=== PATIENT | female | born 1960 | race Two or more races ===

== ENCOUNTER 2019-09-26 11:58 | Inpatient (IN) | payer OTHER ==
[~2019-09-26] VITALS: Ht 154.9 cm; Wt 60.8 kg
[2019-09-30] MEDS ORDERED: AVALIDE PO (12:51)
[2019-09-30] MEDS ORDERED: LEVOTHYROXINE25 MCG PO (12:51)
[2019-09-30] MEDS ORDERED: [UNRECOGNIZED DRUG - OTHER] IJ (12:52)
[2019-09-30] MEDS ORDERED: CRESTOR10 MG PO (12:52)
[2019-10-02] MEDS ORDERED: IRBESARTAN-HCT1 EACH PO (08:33)
[2019-10-05] MEDS ORDERED: INTESTINEX680 M1 PO (12:48)
[2019-10-05] MEDS ORDERED: OMEPRAZOLE MAGN20 MG PO (12:48)
[2019-10-05] MEDS ORDERED: PERCOCET 5-3251 EACH PO (12:48)
== END 2019-10-05 15:27 | disposition home or self-care (01) | DRG 331 ==
LOC: EDUNIT# 09-30 09:45 → SURH 10-02 06:00 → O/R 10-02 06:00 → SURG 10-02 06:45 → SURH 10-02 11:11
PROVIDERS: ADMIT Surgery
PROC: 07TB4ZZ Resection of Mesenteric Lymphatic, Percutaneous Endoscopic Approach (ICD-10-PCS; 2019-10-02)
PROC: 0DTF4ZZ Resection of Right Large Intestine, Percutaneous Endoscopic Approach (ICD-10-PCS; principal; 2019-10-02 06:45)
DX: C18.0 Malignant neoplasm of cecum (principal); R59.0 Localized enlarged lymph nodes; I10 Essential (primary) hypertension

== ENCOUNTER 2019-09-26 13:14 | Outpatient (CLI) | payer OTHER | END 2019-09-26 15:36 | disposition home or self-care (01) | LOC: RAD 13:14 | DX: C18.0 Malignant neoplasm of cecum (principal); R59.0 Localized enlarged lymph nodes; R19.5 Other fecal abnormalities ==

== ENCOUNTER 2019-09-27 08:08 | Outpatient (CLI) | payer OTHER | END 2019-09-27 08:17 | disposition home or self-care (01) | LOC: LAB 08:08 | DX: C18.0 Malignant neoplasm of cecum (principal); R59.0 Localized enlarged lymph nodes; R19.5 Other fecal abnormalities ==

== ENCOUNTER 2019-09-30 08:22 | Outpatient (CLI) | payer OTHER ==
[2019-09-30] MEDS ORDERED: LEVOTHYROXINE25 MCG PO (12:51)
[2019-09-30] MEDS ORDERED: AVALIDE PO (12:51)
[2019-09-30] MEDS ORDERED: [UNRECOGNIZED DRUG - OTHER] IJ (12:52)
[2019-09-30] MEDS ORDERED: CRESTOR10 MG PO (12:52)
== END 2019-09-30 08:24 | disposition home or self-care (01) ==
LOC: TOM 08:22
DX: C18.0 Malignant neoplasm of cecum (principal); R59.0 Localized enlarged lymph nodes; R19.5 Other fecal abnormalities

== ENCOUNTER 2020-09-27 09:30 | Outpatient (CLI) | payer OTHER ==
[~2020-09-27 09:30] MED LIST: AVALIDE PO; CRESTOR10 MG PO; INTESTINEX680 M1 PO; IRBESARTAN-HCT1 EACH PO; LEVOTHYROXINE25 MCG PO; OMEPRAZOLE MAGN20 MG PO; PERCOCET 5-3251 EACH PO; [UNRECOGNIZED DRUG - OTHER] IJ
== END 2020-09-27 09:43 | disposition home or self-care (01) ==
LOC: SONOGRAMA 09:30
PROVIDERS: ATTEND Pathology Anatomic Pathology & Clinical Pathology
DX: E04.2 Nontoxic multinodular goiter (principal)

== ENCOUNTER 2021-01-11 10:10 | Day surgery (SDC) | payer OTHER | END 2021-01-11 13:57 | disposition home or self-care (01) | LOC: AMB-ENDOS 10:10 | PROVIDERS: ATTEND Surgery | DX: K62.89 Other specified diseases of anus and rectum (principal); K64.8 Other hemorrhoids; Z20.822 Contact with and (suspected) exposure to COVID-19 ==